=== PATIENT | male | born 1965 | race Caucasian/White ===

== ENCOUNTER 2023-12-18 08:08 | Emergency (ER) | payer OTHER, SELFPAY ==
[2023-12-18 08:12] VITALS: BP 141/104
--- NOTE | 2023-12-18 09:25 | ED.GENMED ---
History of Present Illness
General
Chief Complaint: Chest Pain
Source: patient and spouse
Exam Limitations: none
Time Seen by Provider: 12/18/23 09:25
Nursing documentation reviewed up to this point in time: agreed with
History of Present Illness
History of Present Illness:
58-year-old male presents emergency department after getting chest pain and shortness of breath around 4 AM. He felt a burning sensation. It was intermittent. He last experienced it while driving here. He was out until about 2 AM last night, had
some groin pain when walking to the car. He denies any groin pain now. He states he drank about 5 drinks last night. He and his stayed with their daughter in [place].
Past History
Past History
ED Past Medical History: GERD, HTN (Borderline) and Other (SVTs)
ED Past Surgical History: Other (Hernia repair)
Social History
Tobacco: Non-smoker
Alcohol: Occasional
Drug: None
Personal:
Living: with family
Employment: Employed
Family History
Family History: Other (No significant); Negative CAD
Review of Systems
Review of Systems
Allergies reviewed?: Yes
All Other Systems: Not applicable
Constitutional: Reports no symptoms
EENT: Reports no symptoms
Respiratory: Reports trouble breathing
Cardiac: Reports chest pain and palpitations
ABD/GI: Reports no symptoms
: Reports no symptoms
Musculoskeletal: Reports muscle pain
Skin: Reports no symptoms
Neurological: Reports no symptoms
Endocrine: Reports no symptoms
Hematologic/Lymphatic: Reports no symptoms
Psychiatric: Reports no symptoms
Phy Exam
Physical Exam
Physical Exam:
Physical Exam
General: no apparent distress, not acutely ill
Neck: supple. no meningeal signs. normal posterior pharynx
Heart: s1/s2 regular rate and rhythm, no murmur. equal radial
pulses.
HEENT: Pupils equal round reactive to light, EOMI
Lungs: no acute respiratory distress. clear bilaterally
Abdomen: normal bowel sounds. not tender. no CVAT
Neuro: alert and oriented. no focal neurological deficits cranial nerves II through XII intact
Skin: no rash
Psychiatric: well kept. interactive and cooperative
Extremities: no edema. no calf tenderness. negative homans. good distal pulses
Scores
Heart Score for Chest Pain Patients
STEMI patient?: No
History: Slightly or Non-Suspicious
ECG: Normal
Age: >45 - <65 years
Risk Factors: 1 or 2 Risk Factors
Troponin: </= Normal Limit
Heart Score for Chest Pain Patients: 2
Heart Score Risk: 2.5% MACE over next 6 weeks
Course
Orders/Labs/Results
Orders:
Orders
12/18/23 08:10
EKG [Electrocardiogram (*1)] Urgent
Reason for Study: Chest Pain
EKG- Treatment ONCE
12/18/23 09:28
IV Insert/Care/Rem.- Treatment PRN
12/18/23 09:29
Cardiac Monitoring- Treatment ONCE
12/18/23 09:30
Alcohol Urgent
Complete Blood Count/With Diff Urgent
Comprehensive Metabolic Panel Urgent
Troponin I Urgent
12/18/23 09:36
Add On- LAB Urgent
Tests Added?: alcohol
12/18/23 12:08
Troponin I Urgent
Abnormal Lab Results
12/18/23
09:30
Abs Immat Gran (auto) 0.1 H 10^3/uL
(0-0.05)
Absolute Neuts (auto) 9.1 H 10^3/uL
(1.4-6.5)
Absolute Lymphs (auto) 1.0 L 10^3/uL
(1.2-3.4)
Immature Gran % 0.6 H %
(0-0.5)
Neutrophils % 85.0 H %
(42.2-75.2)
Lymphocytes % 9.5 L %
(20.5-51.1)
Glucose 136 H mg/dl
(70-99)
12/18/23 09:30
12/18/23 09:30
Vital Signs
Initial and Last Documented VS:
Initial Vital Signs
Temp Pulse Resp BP Pulse Ox
98.2 F 94 18 141/104 98
12/18/23 08:12 12/18/23 08:12 12/18/23 08:12 12/18/23 08:12 12/18/23 08:12
Last Documented Vital Signs
Temp Pulse Resp BP Pulse Ox
98.2 F 74 18 138/69 95
12/18/23 08:12 12/18/23 10:45 12/18/23 10:45 12/18/23 10:00 12/18/23 10:45
MDM/Problems Addressed
Differential Diagnosis Includes:
ACS, PE, dysrhythmia
MDM/Problems Addressed:
58-year-old male with left-sided chest pain/palpitations. Doubt ACS or PE, no signs of dysrhythmia. Possibly related to recent alcohol intake. Stable for discharge.
Chronic conditions affecting care: HTN and Arrhythmia
*Pulse Oximetry
Patient hypoxic: no
*EKG
Interpreted by ED Provider?: Yes
EKG Intrepretation Date: 12/18/23
EKG Intrepretation Time: 08:14
Interpretation: abnormal
Comparison EKG: changes noted
Heart Rate: 91
Rate: normal
Rhythm: sinus and PVC's
[place]: normal axis
Interval: normal interval
QRS Pattern: left vent hypertrophy
Ischemia: no ischemia
*Land Examiner Interpretation
Rate: normal
Interpretation: normal
Heart Rate: 94
Rhythm: sinus
*Critical Care Note
Total Time (30-74mins, 75-104mins- exclusive of procedures): Not Applicable
Data Reviewed
Review of Other/Old Records Reveals: Testing (Low risk nuclear stress test performed by Dr. Hanna Capone on 07/12/2023)
Source: records
Further Testing Considered But Not Given:
Chest x-ray and CT scan not indicated
Patient Management
Social determinants of health affecting care: Living situation
Escalation/DeEscalation of care consider admission/obs:
Admit not indicated
ED Attending Note
-
Portions of this chart may have been created with voice recognition software.� Occasional wrong word or��sound alike� substitutions may have occurred due to the inherent limitations of voice recognition software.
Discharge Plan
Departure
Patient Disposition: Home (Routine Discharge)
Date of Disposition: 12/18/23
Time of Disposition: 13:03
Patient with high blood pressure during this ER visit?: Yes
Condition: Good
Discharge Problem:
Chest pain
Instructions: Chest Pain DCA Follow Up, BLOOD PRESSURE
Prescriptions:
No Action
Nexium
1 tab PO DAILY
tramadol 50 MG tablet
25 mg PO TID PRN (Reason: pain) Qty: 15 0RF
diclofenac potassium 50 MG tablet
50 mg PO BID Qty: 20 0RF
Referrals:
MINH QUINTANILLA MD [Family Provider] -
Activity Restrictions/Additional Instructions:
Return for any concerns.
Interventions
Interventions:
*Risk Screen - Suicide Last Done: 12/18/23 09:46
*General Assessment Last Done: 12/18/23 08:12
*Neglect/Abuse Screening Last Done: 12/18/23 09:46
*ED COVID-19 Vaccine History Last Done: 12/18/23 08:12
ED- Cardiac Assessment Last Done: 12/18/23 09:46
Discharge Date and Time
Print Language: GREENLANDIC
[2023-12-18 09:27] VITALS: BP 151/68
[2023-12-18 09:40] LABS: % Basophils 0.7 % (0-2); % Eosinophils 0.5 % (0-6); % Immature Granulocytes 0.6 % (0-0.5); % Lymphocytes 9.5 % (20.5-51.1); % Monocytes 3.7 % (1.7-9.3); Absolute Basophils 0.1 10^3/uL (0-0.2); Absolute Eosinophils 0.1 10^3/uL (0-0.7); Absolute Immature Granulocytes 0.1 10^3/uL (0-0.05); Absolute Monocytes 0.4 10^3/uL (0.1-0.6); Absolute Neutrophils 9.1 10^3/uL (1.4-6.5); Hematocrit 44.7 % (39.0-52.0); Hemoglobin 15.7 g/dL (13.0-18.0); Mean Corp Hgb Conc. 35.1 g/dL (33.0-37.0); Mean Corpuscular Hgb 30.6 pg (27.0-31.0); Mean Corpuscular Volume 87.1 fL (80.0-94.0); Mean Platelet Volume 10.2 fL (7.4-10.4); Nucleated Red Blood Cells % 0 % (-); Platelet Count 245 10^3/uL (130-400); Red Blood Cell Count 5.13 10^6/uL (4.70-6.10); Red Cell Dist. Width 12.9 % (11.5-14.5); White Blood Cell Count 10.6 10^3/uL (4.8-10.8)
[2023-12-18 09:53] LABS: ALT (SGPT) 27 U/L (0-50); AST (SGOT) 27 U/L (17-59); Albumin 4.5 g/dl (3.5-5.0); Alkaline Phosphatase 53 U/L (38-126); Blood Urea Nitrogen 14 mg/dl (9-20); Calcium 9.4 mg/dl (8.4-10.2); Carbon Dioxide 26 mmol/L (22-30); Chloride 104 mmol/L (98-107); Glucose 136 mg/dl (70-99); Potassium 4.4 mmol/L (3.5-5.1); Sodium 139 mmol/L (135-145); Total Bilirubin 0.6 mg/dl (0.2-1.3); Total Protein 7.7 g/dl (6.3-8.2); eGFR > 60.00
[2023-12-18 10:00] VITALS: BP 138/69
[2023-12-18 10:11] LABS: Troponin I < 0.012 ng/ml
[2023-12-18 10:38] LABS: Alcohol None Detected
[2023-12-18 11:00] VITALS: BP 141/75
[2023-12-18 12:00] VITALS: BP 151/67
[2023-12-18 12:40] LABS: Troponin I < 0.012 ng/ml
[2023-12-18 13:00] VITALS: BP 144/71
== END 2023-12-18 13:23 | disposition home or self-care (01) ==
LOC: EMR 08:08
PROVIDERS: EMERGENCY PHYSICIAN Emergency Medicine; FAMILY PHYSICIAN Family Medicine
DX: R07.89 Other chest pain (principal); R00.2 Palpitations; R06.02 Shortness of breath; M79.10 Myalgia, unspecified site; I10 Essential (primary) hypertension; K21.9 Gastro-esophageal reflux disease without esophagitis; I47.10 Supraventricular tachycardia, unspecified
CPT/HCPCS: 99283; 80053; 82077; 84484; 85025; 93005